=== PATIENT | male | born 1960 | race Caucasian/White ===

== ENCOUNTER 2017-12-06 09:52 | Emergency (ER) | payer OTHER ==
[2017-12-06 10:59] VITALS: BP 150/83
[2017-12-06] MEDS ORDERED: Ketorolac INJ* 30 MG/ML 1 ML VIAL IV ONE (11:05)
[2017-12-06] MEDS ORDERED: SUMAtriptan SQ* 6 MG/0.5 ML VIAL SUBCUT ONE (11:06)
--- NOTE | 2017-12-06 11:13 | UC ---
Headache HPI - HPI Summary HPI Summary: Here for headache for about two days. This is throbbing and right parietal. He has a hx of migraine and this feels similar to prior. NO known kidney disease. he does have HTN. - History Of Current Complaint Chief Complaint: UCHeadakailash Stated Complaint: MIGRANE Time Seen by Provider: 12/06/17 11:01 Hx Obtained From: Patient, Family/Security Professional Onset/Duration: Gradual Onset, Lasting Days Currently Pain Is: Moderate Pain Intensity: 7 - 6/10 pain. Timing: Constant, Days Character: Dull, Throbbing Location of Headache: Parietal Aggravating Factor(s): Position Change Allevating Factor(s): Rest Associated Signs And Symptoms: Positive: Neck Pain. Negative: Dizziness, Seizure, Nausea, Vomiting, Sinus Pressure, Decreased LOC, Visual Changes - Allergies/Home Medications Allergies/Adverse Reactions: Allergies Allergy/AdvReac Type Severity Reaction Status Date / Time Storden Allergy Hives Verified 12/06/17 10:48 Sulfa Antibiotics Allergy Hives Verified 12/06/17 10:48 PMH/Surg Hx/FS Hx/Imm Hx Previously Healthy: No - HTN. - Surgical History Surgical History: Yes Surgery Procedure, Year, and Place: Gall bladder 2013 - Family History Known Family History: Positive: Other - HTN. - Social History Alcohol Use: None Substance Use Type: None Smoking Status (MU): Never Smoked Tobacco Review of Systems Neurological: Headache All Other Systems Reviewed And Are Negative: Yes Physical Exam Triage Information Reviewed: Yes Appearance: Well-Appearing, No Pain Distress, Well-Nourished Vital Signs: Initial Vital Signs Temp 98.8 F 12/06/17 10:50 Pulse 78 12/06/17 10:50 Resp 18 12/06/17 10:50 BP 150/83 12/06/17 10:50 Pulse Ox 97 12/06/17 10:50 Vital Signs Reviewed: Yes Eyes: Positive: Conjunctiva Clear, Other: - Fundoscopic quinton intact without any papilledema. ENT: Positive: Normal ENT inspection, Uvula midline. Negative: Nasal congestion , Nasal drainage, Trismus, Hoarse voice Neck: Positive: Supple, Nontender, No Lymphadenopathy. Negative: Nuchal Rigidity Respiratory: Positive: Lungs clear, Normal breath sounds, No respiratory distress, No accessory muscle use. Negative: Respiratory distress, Decreased breath sounds, Accessory muscle use, Crackles, Rhonchi, Stridor Cardiovascular: Positive: No Murmur, Pulses Normal Abdomen Description: Positive: No Organomegaly, Soft. Negative: Distended, Guarding Musculoskeletal: Positive: ROM Intact, No Edema Neurological: Positive: Alert, Muscle Tone Normal. Negative: Fatigued Psychological: Positive: Normal Response To Family, Age Appropriate Behavior Skin: Negative: rashes Headache Course/Dx - Course Course Of Treatment: NO signs of meningismus. No temporal tenderness or jaw claudication. This feels similar to prior. - Differential Dx/Diagnosis Differential Diagnosis/HQI/PQRI: CVA, TIA, Epidural Hematoma, Subdural Hematoma , Meningitis, Migraine, Sinus Headache, Subarachnoid Hemorrhage, Temporal Arteritis, Tension Headache, Viral Syndrome Provider Diagnoses: headache. Discharge - Discharge Plan Condition: Good Disposition: HOME Patient Education Materials: Acute Headache (DC) Referrals: Satish Haywood MD [Primary Care Provider] -
== END 2017-12-06 11:36 | disposition home or self-care (01) ==
LOC: UCCORT 09:52
DX: R51 Headache (principal); M54.2 Cervicalgia; Z88.2 Allergy status to sulfonamides; Z90.49 Acquired absence of other specified parts of digestive tract
CPT/HCPCS: 96372; 99211; G0463; J1885; J3030